=== PATIENT | female | born 1955 | race Caucasian/White ===

== ENCOUNTER 2023-09-12 10:22 | Outpatient (OUT) | payer MEDICARE, SELFPAY ==
--- NOTE | 2023-09-12 10:29 | MM_ITS ---
Patient Name: JOSAFAT HERNANDEZ MR#: [id number] : 1955 Exam Date: 09/12/2023 Ordering Doctor: DR Jonnathan Paulino . RADIOLOGY REPORT PROCEDURE: MM TOMOSYNTHESIS SCREENING BI COMPARISON: None. INDICATIONS: screening Calculator Name NCI Breast Cancer Risk Assessment Tool 5 Year Breast Cancer Risk 1.10% Lifetime Breast Cancer Risk 3.50% Personal Breast Cancer No Personal Ovarian Cancer No Treatments None Family Cancers Father with lung cancer at age 80; Sister with lung cancer at age 50. LOCATION: [facility] BREAST COMPOSITION: There are scattered areas of fibroglandular density. FINDINGS: DIAGNOSTIC CATEGORY 2--BENIGN FINDING: RIGHT BREAST: No significant suspicious finding. LEFT BREAST: No significant suspicious finding. Subcentimeter Reniform nodules likely representing intramammary lymph nodes RECOMMENDATIONS: ROUTINE MAMMOGRAM AND CLINICAL EVALUATION IN 12 MONTHS. PLEASE NOTE: A NORMAL MAMMOGRAM DOES NOT EXCLUDE THE POSSIBILITY OF BREAST CANCER. A CLINICALLY SUSPICIOUS PALPABLE LUMP SHOULD BE BIOPSIED. Dictated by: Greg Springer MD on 09/12/2023 at 13:09 Approved by: Greg Springer MD on 09/12/2023 at 13:11
== END 2023-09-12 10:23 | disposition home or self-care (01) ==
LOC: MAMMO 10:25
PROVIDERS: PCP Family Medicine; Visit Provider Family Medicine
DX: Z12.31 Encounter for screening mammogram for malignant neoplasm of breast (principal); Z80.1 Family history of malignant neoplasm of trachea, bronchus and lung
CPT/HCPCS: 77063; 77067

== ENCOUNTER 2024-10-25 10:04 | Outpatient (OUT) | payer MEDICARE, SELFPAY ==
--- NOTE | 2024-10-25 10:06 | MM_ITS ---
Patient Name: JOSAFAT HERNANDEZ MR#: [id number] : 1955 Exam Date: 10/25/2024 Ordering Doctor: DR SHANNAN BARBA . RADIOLOGY REPORT PROCEDURE: MM TOMOSYNTHESIS SCREENING BI COMPARISON: MM TOMOSYNTHESIS SCREENING BI, 09/12/2023. INDICATIONS: Screening Calculator Name NCI Breast Cancer Risk Assessment Tool 5 Year Breast Cancer Risk 1.10% Lifetime Breast Cancer Risk 3.30% Personal Breast Cancer No Personal Ovarian Cancer No Treatments None Family Cancers Father with lung cancer at age 80; Sister with lung cancer at age 50. LOCATION: [facility] BREAST COMPOSITION: There are scattered areas of fibroglandular density. FINDINGS: RIGHT BREAST: No significant suspicious finding. LEFT BREAST: No significant suspicious finding. DIAGNOSTIC CATEGORY 1--NEGATIVE. RECOMMENDATIONS: ROUTINE MAMMOGRAM AND CLINICAL EVALUATION IN 12 MONTHS. PLEASE NOTE: A NORMAL MAMMOGRAM DOES NOT EXCLUDE THE POSSIBILITY OF BREAST CANCER. A CLINICALLY SUSPICIOUS PALPABLE LUMP SHOULD BE BIOPSIED. Dictated by: Maury Clemente DO on 10/25/2024 at 11:47 Approved by: Maury Clemente DO on 10/25/2024 at 11:49
--- OUTSIDE RECORDS SUMMARY | 2024-10-25 10:08 | XMS_ITS | Clinical Summary ---
Author Organization [facility] [facility] tem Address [id number] [address] [place] [address] Care Team Providers Care Planning Management It Specialist Name Role Phone Jonnathan Paulino MD Primary Care Provider [phone] Allergies No known active allergies Medications No known medications Immunizations Immunization Administration Dates Next Due Tdap 07/20/2021 Social History Tobacco Use Types Packs/Day Years Used Date Smoking Tobacco: Never Smokeless Tobacco: Never Childcare Answer Date Recorded Childcare Unknown 10/28/2018 Employment Answer Date Recorded Employment Unknown 10/28/2018 Purpose - Life Answer Date Recorded Purpose and direction in life Unknown Comments Unknown Sex and Gender Information Value Date Recorded Sex Assigned at Not on file Legal Sex Female 5:21 PM EDT Gender Identity Not on file Sexual Orientation Not on file Last Filed Vital Signs Vital Sign Reading Time Taken Comments Blood Pressure 165/87 07/20/2021 7:14 PM EST Pulse 88 07/20/2021 7:14 PM EST Temperature 36.9 C (98.5 F) 07/20/2021 6:05 PM EST Respiratory Rate 18 07/20/2021 7:14 PM EST Oxygen Saturation 97% 07/20/2021 6:05 PM EST Inhaled Oxygen Concentration - - Weight 68 kg (150 lb) 07/20/2021 6:05 PM EST Height 154.9 cm (5' 1 ) 07/20/2021 6:05 PM EST Body Mass Index 28.34 07/20/2021 6:05 PM EST Plan of Treatment Health Maintenance Due Date Last Done Comments Depression Screening 1966 Tobacco Screening 1966 Adult BMI Screening 1972 Zoster (Shingles) Vaccine (1 of 2) 2004 Fall Risk Screening 2019 COVID-19 Vaccine (4 - 2023-2 5 season) 2024 05/16/2021, 11/29/2020, 11/08/2020 Influenza Vaccine 01/17/2025 DTaP,Tdap and Td Vaccines (2 - Td or Tdap) 07/21/2031 07/20/2021 Medical Devices Not on file Insurance MEDICARE Care Teams Planning Management It Specialist Relationship Specialty Start Date End Date Jonnathan Paulino MD PCP - General Family Medicine 07/20/21
--- OUTSIDE RECORDS SUMMARY | 2024-10-25 10:08 | XMS_ITS | Patient Health Record ---
Author Organization [facility] Address [address] [place], [place] [id number] Care Team Providers Care Horticultural Nursery Assistant Name Role Phone Megan Jones Unavailable [phone] Jannet Archer Unavailable [phone] Allergies Allergen (clinical drug ingredient) Drug/Non Drug Allergy documented on EMR Reaction Allergy Type Onset Date Status sulfamethoxazole / trimethoprim Bactrim Comments: agitation Drug Allergy 09/15/2018 Active Reason For Referral No Information Social History Sex Assigned At : Social History Observation Description Sex Assigned At Female Problems Problem Type SNOMED Code ICD Code Onset Dates Problem Status W/U Status Risk Notes Problem Body mass index 25-29 - overweight (455656757) BMI 26.0-26.9,adult (Z68.26) Active confirmed Problem Intervertebral disc disorder of lumbar region with myelopathy (35974366) Intervertebral lumbar disc disorder with myelopathy, lumbar region (722.73) (722.73) 009 Active confirmed Problem Depression screening (219863904) Screening for depression (Z13.31) Active confirmed Description:De pression screening Problem Radiculopathy due to lumbar intervertebral disc disorder (550781894192877 ) Lumbar disc disease with radiculopathy (M51.16) Active confirmed Comment:-Chron ic low back pain secondary to DDD and small disc herniation L5-S1 -no erythema, edema, point or CVA tenderness -Lat rotation or extension of hip does not elicit pain -bending forward and leg raise elicits mid lower lumbar pain w/o radiation -No focal neuro deficits, No bowel or bladder dysfunction. -Discussed the condition and treatment plan with patient -started on Baclofen 5mg PO BID PRN, mild stretches & moist heat -f/u in 2 weeks,Descript ion:Lumbar disc herniation with radiculopathy Problem Hypertension (73300746) Hypertension (I10) Active confirmed Comment:systol ic BP >140 at two appointments. +trace edema. Pt has allergy to sulfa, so will avoid HCTZ and start lisinopril. Advised on low-salt diet and increased exercise. Will check labs Will f/u in 1-2 months. PVU., Problem Dysuria (74858854) Difficult or painful urination (R30.0) 008 Active confirmed Description:Dy suria Problem Acute sinusitis (80419630) Acute infection of nasal sinus (J01.90) 010 Active confirmed Description:Ac vince sinusitis Problem Breast cancer screening (641975856) Breast cancer screening (Z12.39) Active confirmed Problem Goiter (0922372) Enlarged thyroi d (E04.9) Active confirmed Comment:Clinic ally seems euthyroid except for difficulty in weight loss. R thyroid lobe is enlarged on exam. Will check labs and start endocrine referral, Problem Allergic rhinitis (70277651) Allergic rhinitis (J30.9) 010 Active confirmed Problem Osteoarthritis (099311560) Arthritis, degenerative (M19.90) 009 Active confirmed Description:Os teoarthrosis Problem Disease caused by virus (92230840) Disease caused by virus (B34.9) Active confirmed Comment:inc monica se fluids,Descrip tion:Viral infection Problem Thoracic and lumbosacral neuritis (207089988) Thoracic or lumbosacral neuritis or radiculitis (724.4) (724.4) 009 Active confirmed Problem Adult health examination (871302445) Routine adult health maintenance (Z00.00) Active confirmed Comment:Overal l doing well. See notes below - we will start treatment for HTN today and check some labs., Problem Urinary tract infectious disease (34349042) Infection of urinary tract (N39.0) 007 Active confirmed Description:Ur inary tract infection Vital Signs Heart Rate 104 /min 12/15/2023 Height-cm 153.67 cm 12/15/2023 Blood pressure diastolic 89 mm Hg 12/15/2023 Weight-kg 63.5 kg 12/15/2023 Height 60.50 in 12/15/2023 Blood pressure systolic 140 mm Hg 12/15/2023 Weight 140 lbs 12/15/2023 BMI 26.89 kg/m2 12/15/2023 Encounters Encounter Location Date Provider Diagnosis [facility] [address], [place] [id number] 12/15/2023 Jannet Archer BMI 26.0-26.9,adul t Z68.26 ; Dietary counseling Z71.3 ; Exercise counseling Z71.82 and Encounter for dental examination and cleaning without abnormal findings Z01.20 Assessments Encounter Date Diagnosis (ICD Code) Assessment Notes Treatment Notes Treatment Clinical Notes Section Notes 12/15/2023 BMI 26.0-26.9,adult (ICD-10 - Z68.26) m 12/15/2023 Dietary counseling (ICD-10 - Z71.3) m 12/15/2023 Exercise counseling (ICD-10 - Z71.82) m 12/15/2023 Encounter for dental examination and cleaning without abnormal findings (ICD-10 - Z01.20) m Plan Of Treatment No Information Medical (General) History Medical History History ICD Code Arthritis, degenerative, HAILY CRIPTION: Osteoarthrosis, ProblemStatus: Active, , Intervertebral lumbar disc d isorder with myelopathy, lumbar region (722.73), ProblemStatus: Active, , Thoracic or lumbosacral neur itis or radiculitis (724.4), ProblemStatus: Active, , Surgical History Surgery Date(Month/Year) SURGICAL: Tubal ligation, ProblemStatus: Active, Hysterectomy, ProblemStatus: Active, SURGICAL: Tonsillectomy and adenoidectom y, ProblemStatus: Active, SURGICAL: No previous surgery, ProblemSt atus: Inactive, 2007-01-06
--- OUTSIDE RECORDS SUMMARY | 2024-10-25 10:08 | XMS_ITS | Clinical Summary ---
Author Organization [facility] Healthcare Address [address] [place] [address] Care Team Providers Care Cotton Opener Name Role Phone Jonnathan Paulino MD Primary Care Provider [phone] Jonnathan Paulino MD Unavailable Allergies No known active allergies Medications latanoprost (Xalatan) 0.005 % ophthalmic solution INSTILL 1 DROP INTO EACH EYE IN THE EVENING DIRECTED 4 Active loratadine (Claritin) 10 MG tablet Take 10 mg by mouth Daily Active cyclobenzaprine (Flexeril) 10 MG tabletIndications: Spondylosis of lumbar region without myelopathy or radiculopathy Take 1 tablet (10 mg) by mouth 3 (three) times a day as needed for muscle spasms 90 tablet 2 5 07/07/19 26 Active Active Problems Problem Noted Date Diagnosed Date Medicare annual wellness visit, subsequent 09/08 Assessment & Plan (09/08/2024 12:04 PM EDT): Reviewed labs. Discussed proper diet and regular aerobic exercise. Need aerobic exercise 5-6 days a week for 30 minutes at a time. Smaller portions and limit total calories. Cologuard normal September 2023. Tetanus every 10 years. Advised not to smoke. Encounter for long-term (current) use of medicat ions 03/08/2024 Dyslipidemia 03/08/2024 Arthralgia 03/08/2024 Assessment & Plan (03/08/2024 9:48 AM EDT): Check labs. Chronic pain of both shoulders 09/04/2023 Gastroesophageal reflux disease without esophagi tis 09/04/2023 Assessment & Plan (03/08/2024 9:48 AM EDT): Doing well with diet changes and monitor. Assessment & Plan (09/04/2023 9:48 AM EDT): Symptoms controlled with protonix and use PRN. Spondylosis of lumbar region without myelopathy or radiculopathy 09/04/2023 Assessment & Plan (03/08/2024 9:48 AM EDT): Pain stable and use flexeril PRN. Increase activity and walk regularly. Assessment & Plan (09/04/2023 9:49 AM EDT): Pain stable and use flexeril PRN. Increase activity and walk regularly. Prediabetes 09/04/2023 Allergic rhinitis due to pollen 09/04/2023 Assessment & Plan (09/08/2024 12:03 PM EDT): Symptoms worse and treat with prednisone. Increase zyrtec to BID. Assessment & Plan (03/08/2024 9:48 AM EDT): Symptoms controlled with claritin and continue. Avoid nasal steroids due to glaucoma. Assessment & Plan (09/04/2023 9:48 AM EDT): Symptoms controlled with medication and continue. Avoid nasal steroids due to glaucoma. Stress, reaction gross 09/04/2023 Glaucoma 09/04/2023 Assessment & Plan (09/04/2023 9:49 AM EDT): Recent diagnosis and follow with eye doctor. Encounters Date Type Department Care Team Description 09/08/2024 11:30 AM EDT Office Visit [facility] [address] [place] [address] Jonnathan Paulino MD Medicare annual wellness visit, subsequent (Primary Dx); Seasonal allergic rhinitis due to pollen 09/08/2024 Bamboo flowsheet [facility] [address] [place] [address] Jonnathan Paulino MD 09/07/2024 Travel from Last 3 Months Social History Tobacco Use Types Packs/Day Years Used Date Smoking Tobacco: Never Smokeless Tobacco: Never Tobacco Cessation:Counseling Given: Not Answered [id number] Health Literacy Answer Date Recor ded How often do you need to hav e someone help you when you read instructions, pamphlets, or other written material from your doctor or pharmacy? Never 09/07/2024 Humiliation, Afraid, Rape, and Kick questionnair e Answer Date Recorded Within the last year, have y ou been afraid of your partner or ex-partner? No 09/07/2024 Within the last year, have y ou been humiliated or emotionally abused in other ways by your partner or ex-partner? No Within the last year, have y ou been kicked, hit, slapped, or otherwise physically hurt by your partner or ex-partner? No 09/07/2024 Within the last year, have y ou been raped or forced to have any kind of sexual activity by your partner or ex-partner? No 09/07/2024 Social Connection and Isolat ion Panel [NHANES] Answer Date Recorded In a typical week, how many times do you talk on the phone with family, friends, or neighbors? More than three times a week 09/07/2024 How often do you get togethe r with friends or relatives? Once a week 09/07/2024 How often do you attend chur or congregational services? Never 09/07/2024 Do you belong to any clubs o r organizations such as pentecostal groups, unions, fraternal or athletic groups, or school groups? No 09/07/2024 How often do you attend meet ings of the clubs or organizations you belong to? Never 09/07/2024 Are you , , di vorced, , never , or living with a partner? 09/07/2024 AUDIT-C Answer Date Recorded Q1: How often do you have a drink containing alcohol? Never 09/07/2024 Q2: How many drinks containi ng alcohol do you have on a typical day when you are drinking? Patient does not drink Q3: How often do you have si x or more drinks on one occasion? Never 09/07/2024 Overall Financial Resource Strain (CARDIA) Answe r Date Recorded How hard is it for you to pa y for the very basics like food, housing, medical care, and heating? Not hard at all 09/07/2024 PHQ-2 Answer Date Recorded Patient Health Questionnaire-2 Score 0 09/08/2024 [facility] - Occupational Stress Questionnaire Answer Date Recorded Do you feel stress - tense, restless, nervous, or anxious, or unable to sleep at night because your mind is troubled all the time - these days? Not at all 09/07/2024 Exercise Vital Sign Answer Date Recorde d On average, how many days pe r week do you engage in moderate to strenuous exercise (like a brisk walk)? 3 days 09/07/2024 On average, how many minutes do you engage in exercise at this level? 60 min 09/07/2024 Hunger Vital Sign Answer Date Recorded Within the past 12 months, y ou worried that your food would run out before you got the money to buy more. Never true 09/08/19 25 Within the past 12 months, t he food you bought just didn't last and you didn't have money to get more. Never true 09/07/2024 PRAPARE - Transportation Answer Date Re corded In the past 12 months, has l ack of transportation kept you from medical appointments or from getting medications? No 08/18 In the past 12 months, has l ack of transportation kept you from meetings, work, or from getting things needed for daily living? No 09/07/2024 Housing Stability Vital Sign Answer Cristopher e Recorded In the last 12 months, was t here a time when you were not able to pay the mortgage or rent on time? No 09/07/2024 In the past 12 months, how m any times have you moved where you were living? 0 09/07/2024 At any time in the past 12 m [facility], were you homeless or living in a intermediate (including now)? No 09/07/2024 Comments Unknown Sex and Gender Information Value Date Recorded Sex Assigned at Not on file Legal Sex Female 1:08 PM EDT Gender Identity Not on file Sexual Orientation Not on file Last Filed Vital Signs Vital Sign Reading Time Taken Comments Blood Pressure 144/82 09/08/2024 11:33 AM EDT Pulse 88 09/08/2024 11:33 AM EDT Temperature 35.9 C (96.6 F) 09/08/2024 11:33 AM EDT Respiratory Rate 20 09/08/2024 11:33 AM EDT Oxygen Saturation 96% 09/08/2024 11:33 AM EDT Inhaled Oxygen Concentration - - Weight 72.1 kg (159 lb) 09/08/2024 11:33 AM EDT Height 157.5 cm (5' 2 ) 09/08/2024 11:33 AM EDT Body Mass Index 29.08 09/08/2024 11:33 AM EDT Plan of Treatment Upcoming Encounters Date Type Department Care Team (Late st Contact Info) Description 03/15/2025 9:00 AM EDT Office Visit [facility] [address] [place] [address] Jonnathan Paulino MD [address] [place] [address] Health Maintenance Due Date Last Done Comments CT Colonography 1955 Colonoscopy 1955 FIT 1955 FOBT 1955 Sigmoidoscopy 1955 Pneumococcal Vaccine: 65+ Ye ars (1 of 1 - PCV) 2004 Mammogram 09/11/2024 09/12/2023, 05/13/2014 Influenza Vaccine (Season Ended) 2025 Medicare Annual Wellness (AWV) 09/08/2025 0 09/08/2024, 03/08/2024 (Patient Refused) Colorectal Cancer Screening 09/29/2026 FIT-DNA 09/29/2026 09/30/2023 Procedures Procedure Name Priority Date/Time Associated Diagnosis Comments LAB COLOGUARD COLON CANCER SCREEN Routine 09/30/2023 8:20 AM EDT Colon cancer screening MM TOMOSYNTHESIS SCREENING BI 09/12/2023 1:11 PM EDT from Last 3 Months or Most Recently Relevant to Health Maintenance Results * Cologuard?? colon cancer screening (09/30/2023 8:20 AM EDT) NONINV COLON CA DNA+OCC BLD SCRN STL-IMP Negative Negative 10/08/2023 1:40 PM EDT [facility] (CLIA #:[id number]) Comment: NEGATIVE TEST RESULT. A negative Cologuard result indicates a low likelihood that a colorectal cancer (CRC) or advanced adenoma (adenomatous polyps with more advanced pre-malignant features) is present. The chance that a person with a negative Cologuard test has a colorectal cancer is less than 1 in 1500 (negative predictive value >99.9%) or has an advanced adenoma is less than 5.3% (negative predictive value 94.7%). These data are based on a prospective cross-sectional study of 10,000 individuals at average risk for colorectal cancer who were screened with both Cologuard and colonoscopy. (Lavell Mcbride et al, N Engl J Med 2014;370(14):7107-1145) The normal value (reference range) for this assay is negative. COLOGUARD RE-SCREENING RECOMMENDATION: Periodic colorectal cancer screening is an important part of preventive healthcare for asymptomatic individuals at average risk for colorectal cancer. Following a negative Cologuard result, the [place] [employer] and U.S. Multi-Society Task Force screening guidelines recommend a Cologuard re-screening interval of 3 years. References: [place] [employer] Guideline for Colorectal Cancer Screening: https://www.cancer.org/cancer/nrzsv-comtyy-rjvnni/ncylbtshj-uizibozvh-ynbzgqh/ac s-rec ommendations.html.; Serafin DK, Jyothi CR, Nataly SoteloK, Colorectal Cancer Screening: Recommendations for Physicians and Patients from the U.S. Multi-Society Task Force on Colorectal Cancer Screening , Am J Gastroenterology 2017; 112:1283-7651. TEST DESCRIPTION: Composite algorithmic analysis of stool DNA-biomarkers with hemoglobin immunoassay. Quantitative values of individual biomarkers are not reportable and are not associated with individual biomarker result reference ranges. Cologuard is intended for colorectal cancer screening of adults of either sex, 45 years or older, who are at average-risk for colorectal cancer (CRC). Cologuard has been approved for use by the U.S. FDA. The performance of Cologuard was established in a cross sectional study of average-risk adults aged 50-84. Cologuard performance in patients ages 45 to 49 years was estimated by sub-group analysis of near-age groups. Colonoscopies performed for a positive result may find as the most clinically significant lesion: colorectal cancer [4.0%], advanced adenoma (including sessile serrated polyps greater than or equal to 1cm diameter) [20%] or non- advanced adenoma [31%]; or no colorectal neoplasia [45%]. These estimates are derived from a prospective cross-sectional screening study of 10,000 individuals at average risk for colorectal cancer who were screened with both Cologuard and colonoscopy. (Lavell Alvarez al, N Engl J Med 2014;370(14):6916-5894.) Cologuard may produce a false negative or false positive result (no colorectal cancer or precancerous polyp present at colonoscopy follow up). A negative Cologuard test result does not guarantee the absence of CRC or advanced adenoma (pre-cancer). The current Cologuard screening interval is every 3 years. ([place] [employer] and U.S. Multi-Society Task Force). Cologuard performance data in a 10,000 patient pivotal study using colonoscopy as the reference method can be accessed at the following location: www.[employer]/results. Additional description of the Cologuard test process, warnings and precautions can be found at www.cologuard.com. Stool specimen (specimen) 09/30/2023 8:20 AM EDT 10/01/2023 1:28 PM EDT Jonnathan Paulino MD LAB MOLECULAR DIAGNOSTICS ORDERA BLES Final Result .[facility] (CLIA #:[id number]) [address] [address], [facility] (CLIA #:[id number]) [address] [address] * MM TOMOSYNTHESIS SCREENING BI (09/12/2023 1:11 PM EDT) Anatomical Region Laterality Modality Other 09/12/2023 1:11 PM EDT Narrative 09/12/2023 1:12 [place] [address] Mammography Report Signed Patient: JOSAAFT HERNANDEZ MR#: [id number] : 1955 Acct:[id number] Age/Sex: 68 / F ADM Date: 09/12/23 Loc: MAMMO Attending Dr: Jonnathan Paulino M.D. Ordering Physician: Jonnathan Paulino M.D. Results: Date of Service: 09/12/23 Follow Up: Procedure(s): MM tomosynthesis screening BI Accession Number(s): [id number] cc: Jonnathan Paulino M.D. Patient Name: JOSAFAT HERNANDEZ MR#: [id number] : 1955 Exam Date: 09/12/2023 Ordering Doctor: DR Jonnathan Paulino . RADIOLOGY REPORT PROCEDURE: MM TOMOSYNTHESIS SCREENING BI COMPARISON: None. INDICATIONS: screening Calculator Name NCI Breast Cancer Risk Assessment Tool 5 Year Breast Cancer Risk 1.10% Lifetime Breast Cancer Risk 3.50% Personal Breast Cancer No Personal Ovarian Cancer No Treatments None Family Cancers Father with lung cancer at age 80; Sister with lung cancer at age 50. LOCATION: [facility] BREAST COMPOSITION: There are scattered areas of fibroglandular density. FINDINGS: DIAGNOSTIC CATEGORY 2--BENIGN FINDING: RIGHT BREAST: No significant suspicious finding. LEFT BREAST: No significant suspicious finding. Subcentimeter Reniform nodules likely representing intramammary lymph nodes RECOMMENDATIONS: ROUTINE MAMMOGRAM AND CLINICAL EVALUATION IN 12 MONTHS. PLEASE NOTE: A NORMAL MAMMOGRAM DOES NOT EXCLUDE THE POSSIBILITY OF BREAST CANCER. A CLINICALLY SUSPICIOUS PALPABLE LUMP SHOULD BE BIOPSIED. Dictated by: Greg Springer MD on 09/12/2023 at 13:09 Approved by: Greg Springer MD on 09/12/2023 at 13:11 Dictated By: Greg Springer M.D. Signed By: 09/12/231311 DD/ 10 TD/TT: Filler Shaker: Procedure Note Radiology, Radiologist, - 09/12/2023 [facility] [place] [id number] Mammography Report Signed Patient: JOSAFAT HERNANDEZ JMR#: [id number] : 1955cct:[id number] Age/Sex: 68 / FADM Date: 09/12/23 Loc: MAMMO Attending Dr: Jonnathan Paulino M.D. Ordering Physician: Jonnathan Paulino M.D.Results: Date of Service: 09/12/23Follow Up: Procedure(s): MM tomosynthesis screening BI Accession Number(s): [id number] cc: Jonnathan Paulino M.D. Patient Name: JOSAFAT HERNANDEZ MR#: [id number] : 1955 Exam Date: 09/12/2023 Ordering Doctor: DR Jonnathan Paulino . RADIOLOGY REPORT PROCEDURE: MM TOMOSYNTHESIS SCREENING BI COMPARISON: None. INDICATIONS: screening Calculator Name NCI Breast Cancer Risk Assessment Tool 5 Year Breast Cancer Risk 1.10% Lifetime Breast Cancer Risk 3.50% Personal Breast Cancer No Personal Ovarian Cancer No Treatments None Family Cancers Father with lung cancer at age 80; Sister with lungcancer at age 50. LOCATION: [facility] BREAST COMPOSITION: There are scattered areas of fibroglandulardensity. FINDINGS: DIAGNOSTIC CATEGORY 2--BENIGN FINDING: RIGHT BREAST: No significant suspicious finding. LEFT BREAST: No significant suspicious finding. Subcentimeter Reniform nodules likely representing intramammary lymph nodes RECOMMENDATIONS: ROUTINE MAMMOGRAM AND CLINICAL EVALUATION IN 12 MONTHS. PLEASE NOTE: A NORMAL MAMMOGRAM DOES NOT EXCLUDE THE POSSIBILITY OFBREAST CANCER. A CLINICALLY SUSPICIOUS PALPABLE LUMP SHOULD BE BIOPSIED. Dictated by: Greg Springer MD on 09/12/2023 at 13:09 Approved by: Greg Springer MD on 09/12/2023 at 13:11 Dictated By: Greg Springer M.D. Signed By:09/12/231311 DD/ 10 TD/TT: Filler Shaker: us Jonnathan Paulino MD [facility] Final Result from Last 3 Months or Most Recently Relevant to Health Maintenance Insurance * Guarantor: Josafat Hernandez Account Type Relation to Patient Date of Phone Billing Address Personal/Family Self [address] [place] [id number] MEDICARE Care Teams Cotton Opener Relationship Specialty Start Date End Date Jonnathan Paulino MD [address] [place] [address] PCP - General Family Medicine 09/04/23 Jonnathan Paulino MD [address] [place] [address] PCP - ACO Reach 06/25/24
--- OUTSIDE RECORDS SUMMARY | 2024-10-25 10:08 | XMS_ITS | Encounter Summary ---
Author Organization [facility] Address [address] [place] [address] Care Team Providers Care Acid Changer Name Role Phone Jonnathan Paulino MD Primary Care Provider [phone] Jonnathan Paulino MD Unavailable Encounter Details Date Type Department Care Team (Late Contact Info) Description 09/12/2023 Clinisync Result Encounter [facility] External Department Unsolicited Jonnathan Paulino MD [address] [place] [address] Social History Tobacco Use Types Packs/Day Years Used Date Smoking Tobacco: Never Smokeless Tobacco: Never PHQ-2 Answer Date Recorded Patient Health Questionnaire-2 Score 0 09/04/2023 Comments Unknown Sex and Gender Information Value Date Recorded Sex Assigned at Not on file Legal Sex Female 1:08 PM EDT Gender Identity Not on file Sexual Orientation Not on file documented as of this encounter Plan of Treatment Upcoming Encounters Date Type Department Care Team (Late Contact Info) Description 03/15/2025 9:00 AM EDT Office Visit [facility] [address] [place] [address] Jonnathan Paulino MD [address] [place] [address] documented as of this encounter Procedures Procedure Name Priority Date/Time Associated Diagnosis Comments MM TOMOSYNTHESIS SCREENING BI 09/12/2023 1:11 PM EDT documented in this encounter Results * MM TOMOSYNTHESIS SCREENING BI (09/12/2023 1:11 PM EDT) Anatomical Region Laterality Modality Other 09/12/2023 1:11 PM EDT Narrative 09/12/2023 1:12 [place] [address] Mammography Report Signed Patient: JOSAFAT HERNANDEZ MR#: [id number] : 1955 Acct:[id number] Age/Sex: 68 / F ADM Date: 09/12/23 Loc: MAMMO Attending Dr: Jonnathan Paulino M.D. Ordering Physician: Jonnathan Paulion M.D. Results: Date of Service: 09/12/23 Follow Up: Procedure(s): MM tomosynthesis screening BI Accession Number(s): [id number] cc: Jonnathan Paulino M.D. Patient Name: JOSAFAT HERNANDEZ MR#: [id number] : 1955 Exam Date: 09/12/2023 Ordering Doctor: [...] lung cancer at age 49. LOCATION: [facility] BREAST COMPOSITION: There are scattered areas of [...] Dictated By: Greg Springer M.D. Signed By: 04/1311 DD/ 10 TD/TT: Water Proofer: Procedure Note Radiology, Radiologist, - 09/12/2023 [facility] [place] [id number] Mammography Report Signed Patient: JOSAFAT HERNANDEZ JMR#: [id number] : 4Acct:[id number] Age/Sex: 68 / FADM Date: 09/12/23 Loc: MAMMO Attending Dr: Jonnathan Paulino M.D. Ordering Physician: Jonnathan Paulino M.D.Results: Date of Service: 09/12/23Follow Up: Procedure(s): MM tomosynthesis screening BI Accession Number(s): [id number] cc: Jonnathan Paulino M.D. Patient Name: JOSAFAT HERNANDEZ MR#: [id number] : 1955 Exam Date: 09/12/2023 Ordering Doctor: DR Jonnathan Avila RADIOLOGY REPORT PROCEDURE: MM TOMOSYNTHESIS SCREENING BI COMPARISON: None. INDICATIONS: screening Calculator Name NCI Breast Cancer Risk Assessment Tool 5 Year Breast Cancer Risk 1.10% Lifetime Breast Cancer Risk 3.50% Personal Breast Cancer No Personal Ovarian Cancer No Treatments None Family Cancers Father with lung cancer at age 80; Sister with lungcancer at age 50. LOCATION: [facility] BREAST COMPOSITION: There are scattered areas of [...] Springer M.D. Signed By:09/12/231311 DD/ 10 TD/TT: Water Proofer: Jonnathan Paulino MD [facility] Final Result documented in this encounter Visit Diagnoses Not on filedocumented in this encounter Care Teams Acid Changer Relationship Specialty Start Date End Date Jonnathan Paulino MD [address] [place] [address] PCP - General Family Medicine 09/04/23 Jonnathan Paulino MD [address] [place] [address] PCP - ACO Reach 06/25/24 documented as of this encounter
== END 2024-10-25 10:05 | disposition home or self-care (01) ==
LOC: MAMMO 10:04
PROVIDERS: PCP Family Medicine; Visit Provider Family Medicine
DX: Z12.31 Encounter for screening mammogram for malignant neoplasm of breast (principal); Z80.1 Family history of malignant neoplasm of trachea, bronchus and lung
CPT/HCPCS: 77063; 77067